=== PATIENT | male | born 1950 | race Caucasian/White ===

== ENCOUNTER 2017-08-01 09:10 | Day surgery (SDC) | payer OTHER ==
[2017-08-01 09:52] LABS: Absolute Monocytes 0.6 K/uL (0.1-1.3); Absolute Neutrophil 5.1 K/uL (1.8-8.0); Basophils % 0.5 % (0-1.3); Eosinophils % 2.2 % (0-4.4); Hematocrit 41.7 % (39.6-49.0); Lymphocytes % 15.1 % (15.3-44.8); MCH 31.4 pg (27.0-35.0); MCV 91.7 fL (80-100); MPV 7.8 fL (7.6-11.3); Monocytes % 8.4 % (3.3-12.3); RBC Red Blood Cell Count 4.55 M/uL (4.33-5.43)
[2017-08-01 09:54] LABS: Urine Appearance CLEAR; Urine Bilirubin NEGATIVE (NEG); Urine Blood NEGATIVE (NEG); Urine Color YELLOW; Urine Glucose NEGATIVE (NEG); Urine Protein NEGATIVE (NEG); Urine Specific Gravity <=1.005 (1.005-1.030); Urine Urobilinogen 0.2 mg/dL (0.2-1.0); Urine pH 7.5 (5.0-7.0)
[2017-08-01] MEDS ORDERED: GENTAMICIN 80 MG/100 ML BAG 80 MG/100 ML BAG IV ONE (09:54)
[2017-08-01] MEDS ORDERED: Ringers Lactate 1,000 ML IV ONE (09:54)
[2017-08-01 10:03] LABS: Urine Microscopic Reflex NO UMIC
--- NOTE | 2017-08-01 10:05 | RAD REPORT ---
EXAM DESCRIPTION: RAD - Chest Pa And Lat (2 Views) - 08/01/2017 9:42 am CLINICAL HISTORY: Preop chest COMPARISON: None. TECHNIQUE: PA and lateral views of the chest were obtained. FINDINGS: The lungs are clear of a focal infiltrate, mass or failure finding. Interstitial markings are mildly prominent believed to be baseline fibrosis. There is mild apical thickening on the right a nd probable pleural scarring at the base on the right. Trachea is midline. Heart size is normal and central vasculature is within normal limits. No pleural effusion or pneumothorax seen. No acute reji ny finding noted. No aortic abnormality. IMPRESSION: Chronic interstitial lung disease in both lung nickerson. Right base and right apex pleural scarring. No acute chest finding.
[2017-08-01 10:06] LABS: BUN Blood Urea Nitrogen 10 mg/dL (6-20); Bicarbonate 30 mEq/L (21-31); Glomerular Filtration Rate > 90 mL/min (=/>90); Glucose Level 109 mg/dL (65-120); Potassium 3.8 mEq/L (3.6-5.0); Sodium Level 141 mEq/L (135-145)
[2017-08-01] MEDS ORDERED: ONDANSETRON 4 MG/2 ML VIAL ONE (11:35)
[2017-08-01] MEDS ORDERED: FENTANYL CITR 100 MCG/2 ML ONE (11:35)
[2017-08-01] MEDS ORDERED: LIDOCAINE 2% MPF 5 ML VIAL ONE (11:35)
[2017-08-01] MEDS ORDERED: PROPOFOL 200 MG/20 ML VIAL IV ONE (11:35)
[2017-08-01] MEDS ORDERED: MIDAZOLAM HCL 2 MG/2 ML INJ ONE (11:35)
[2017-08-01 13:39] VITALS: BP 150/80; TEMP 98.2; O2SAT 96
--- NOTE | 2017-08-01 14:05 | EKG ---
Test Date: 2017-08-01 Test Time: 09:21:51 Social Security Assessor: YARIEL MEASUREMENT RESULTS: Intervals: Rate: 78 WI: 182 QRSD: 98 QT: 368 QTc: 419 [place]: P: 71 WI: 182 QRS: 42 T: 74 INTERPRETIVE STATEMENTS: Normal sinus rhythm Possible Left atrial enlargement Borderline ECG Compared to ECG 08/09/2000 10:45:00 Atrial fibrillation no longer present T-wave abnormality no longer present Possible ischemia no longer present Electronically Signed On 08-01-17 14:03:50 CDT by Pritesh Bauman
== END 2017-08-01 12:45 | disposition home or self-care (01) ==
LOC: OR 09:10
PROVIDERS: ATTEND Urology
DX: N20.2 Calculus of kidney with calculus of ureter (principal); F17.220 Nicotine dependence, chewing tobacco, uncomplicated; Z80.0 Family history of malignant neoplasm of digestive organs; Z82.49 Family history of ischemic heart disease and other diseases of the circulatory system
CPT/HCPCS: 36415; 50590; 71046; 80048; 81003; 84153; 85025; 85730; 86850; 86900; 86901; 87086; 93005; J1580; J2250; J2405; J3010; 87088

== ENCOUNTER 2017-08-15 08:47 | Day surgery (SDC) | payer OTHER ==
[2017-08-09 15:18] LABS: Urine Appearance CLOUDY; Urine Bilirubin NEGATIVE (NEG); Urine Blood NEGATIVE (NEG); Urine Color DK YELLOW; Urine Glucose NEGATIVE (NEG); Urine Protein TRACE (NEG); Urine Specific Gravity 1.025 (1.005-1.030); Urine Urobilinogen 0.2 mg/dL (0.2-1.0); Urine pH 5.5 (5.0-7.0)
[2017-08-09 15:19] LABS: Urine Microscopic Reflex ORDER UMIC
[2017-08-09 15:21] LABS: Absolute Lymphocytes (CBC) 1.1 K/uL (0.7-4.9); Absolute Monocytes 0.6 K/uL (0.1-1.3); Absolute Neutrophil 5.2 K/uL (1.8-8.0); Basophils % 0.7 % (0-1.3); Eosinophils % 2.5 % (0-4.4); Hematocrit 43.4 % (39.6-49.0); Lymphocytes % 15.2 % (15.3-44.8); MCH 30.9 pg (27.0-35.0); MCV 91.4 fL (80-100); MPV 7.8 fL (7.6-11.3); Monocytes % 8.9 % (3.3-12.3); RBC Red Blood Cell Count 4.75 M/uL (4.33-5.43)
[2017-08-09 15:26] LABS: Protime INR 1.05
[2017-08-09 15:33] LABS: BUN Blood Urea Nitrogen 15 mg/dL (6-20); Bicarbonate 29 mEq/L (21-31); Glomerular Filtration Rate > 90 mL/min (=/>90); Glucose Level 158 mg/dL (65-120); Potassium 3.9 mEq/L (3.6-5.0); Sodium Level 139 mEq/L (135-145)
[2017-08-09 15:39] LABS: Urine Bacteria <20 /HPF (NONE SEEN); Urine Culture Reflex Order NOT NEEDED; Urine Mucus 1+ /HPF (NONE SEEN); Urine RBC <5 /HPF (NONE SEEN)
[2017-08-09 15:48] LABS: Phosphorus 2.7 mg/dL (2.5-4.3); Uric Acid 5.2 mg/dL (4.8-8.7)
[2017-08-15] MEDS ORDERED: GENTAMICIN 80 MG/100 ML BAG 80 MG/100 ML BAG IV ONE (09:34)
[2017-08-15] MEDS ORDERED: Ringers Lactate 1,000 ML IV ONE (09:34)
[2017-08-15] MEDS ORDERED: LIDOCAINE 1% MPF 5 ML VIAL ONE (10:05)
[2017-08-15] MEDS ORDERED: MIDAZOLAM HCL 2 MG/2 ML INJ ONE (10:05)
[2017-08-15] MEDS ORDERED: FENTANYL CITR 100 MCG/2 ML ONE (10:05)
[2017-08-15] MEDS ORDERED: PROPOFOL 200 MG/20 ML VIAL IV ONE (10:05)
--- NOTE | 2017-08-15 11:03 | RAD REPORT ---
EXAM DESCRIPTION: RAD - Abdomen 1 View (KUB) - 08/15/2017 9:19 am CLINICAL HISTORY: Abdomen pain. ICD N 20.0 FINDINGS: The bowel gas pattern is unremarkable. A 5 millimeter calculus within the mid left ureter is without significant change in position from the August 07 x-ray
[2017-08-15] MEDS ORDERED: KETOROLAC 30 MG/ML INJ ONE (11:07)
[2017-08-15] MEDS ORDERED: ONDANSETRON 4 MG/2 ML VIAL ONE (11:08)
[2017-08-15 11:15] VITALS: O2SAT 98
[2017-08-15 11:57] VITALS: BP 144/82; TEMP 97.6
== END 2017-08-15 11:48 | disposition home or self-care (01) ==
LOC: OR 08:47
PROVIDERS: ATTEND Urology
DX: N20.2 Calculus of kidney with calculus of ureter (principal); M19.90 Unspecified osteoarthritis, unspecified site; Z87.891 Personal history of nicotine dependence; Z80.0 Family history of malignant neoplasm of digestive organs
CPT/HCPCS: 36415; 50590; 74000; 80048; 84100; 84550; 85025; 85610; 85730; 86850; 86900; 86901; 87086; J1580; J2250; J2405; 74018; 81003; 81015; 87088; J3010

== ENCOUNTER 2018-01-23 08:54 | Emergency (ER) | payer OTHER ==
[2018-01-23] MEDS ORDERED: KETOROLAC 30 MG/ML INJ ONE (09:54)
[2018-01-23] MEDS ORDERED: NA CHLORIDE 0.9% 1,000 ML ONE (09:54)
[2018-01-23] MEDS ORDERED: ONDANSETRON 4 MG/2 ML VIAL ONE (09:54)
--- NOTE | 2018-01-23 10:05 | RAD REPORT ---
EXAM DESCRIPTION: CT - Stone Protocol - 01/23/2018 9:45 am CLINICAL HISTORY: Flank pain. Abd pain;Flank pain COMPARISON: 07/29/2017 TECHNIQUE: Axial images were obtained without oral or IV contrast. Lack of contrast limits solid org an and vascular assessment. The [id number] spans the entirety of the system partially obscuring uppermost abdomen and lung bases. Coronal reformatted images were obtained and reviewed. All CT scans are performed using dose optimization technique as appropriate and may include automated exposure control or mA/KV adjustment according to patient size. FINDINGS: The lower lung nickerson are clear. Imaged portions of the liver and spleen show no suspicious findings on non-contrast imaging. The panc reas and adrenal glands are normal. No pathologic lymphadenopathy in the abdomen or pelvis. 5 mm stone is present in the distal left ureter (1370 HU) resulting in moderate left hydronephrosis. No bowel obstruction, free air, free fluid or abscess. Normal appendix noted. Age undetermined T9 compression fracture seen. Moderate lumbosacral degenerative changes. IMPRESSION: 5 mm stone (1370 HU) distal left ureter resulting in moderate left hydronephrosis.
--- NOTE | 2018-01-23 10:14 | ER ---
Nurse's Notes [facility] Name: Kervin Mccann Age: 67 yrs Sex: Male : 1950 Arrival Date: 01/23/2018 Time: 08:58 Bed 17 Private MD: Snow James C Diagnosis: Hydronephrosis with renal and ureteral calculous obstruction Presentation: 01/23 09:04 Presenting complaint: Patient states: i think i have a reoccurring kidney stone, it tw2 started with pain in my low abdomen then radiated to my back. Transition of care: patient was not received from another setting of care. Onset of symptoms was January 23, 2018. Risk Assessment: Do you want to hurt yourself or someone else? Patient reports desire/thoughts of hurting themselves or someone else. Provider notified. Initial Sepsis Screen: Does the patient meet any 2 criteria? No. Patient's initial sepsis screen is negative. Does the patient have a suspected source of infection? No. Patient's initial sepsis screen is negative. Care prior to arrival: None. 09:04 Method Of Arrival: Ambulatory tw2 09:04 Acuity: AKHIL 3 tw2 Historical: - Allergies: 09:06 No Known Allergies; tw2 - Home Meds: 09:06 None [Active]; tw2 - PMHx: 09:06 Kidney stones; tw2 - PSHx: 09:06 None; tw2 - Immunization history:: Adult Immunizations. - Social history:: Smoking status: Patient uses tobacco products, chewing tobacco, but quit smoking 18 yrs ago, Patient uses. - Ebola Screening: : Patient denies travel to an Ebola-affected area in the 21 days before illness onset. - Family history:: not pertinent. Screenin:27 Abuse screen: Denies threats or abuse. Denies injuries from another. Nutritional iw screening: No deficits noted. Tuberculosis screening: No symptoms or risk factors identified. Fall Risk IV access (20 points). Assessment: 10:26 General: Appears in no apparent distress. Behavior is calm, cooperative. Pain: iw Complains of pain in left mid back. Neuro: Level of Consciousness is awake, alert, obeys commands, Oriented to person, place, time, situation, Moves all extremities. Full function. GI: Bowel sounds present X 4 quads. Abd is soft X 4 quads. Derm: Skin is intact, is healthy with good turgor. Musculoskeletal: Range of motion: intact in all extremities. 11:11 Reassessment: Patient appears in no apparent distress at this time. Patient and/or iw family updated on plan of care and expected duration. Pain level reassessed. Patient is alert, oriented x 3, equal unlabored respirations, skin warm/dry/pink. Vital Signs: 09:06 BP 172 / 86; Pulse 87; Resp 18; Temp 98.0; Pulse Ox 96% on R/A; Pain 7/10; tw2 10:32 BP 124 / 63; Pulse 71; Resp 18; Pulse Ox 100% ; sv ED Course: 08:58 Patient arrived in ED. mr 08:59 Snow James MD is Private Physician. mr 09:05 Triage completed. tw2 09:08 Rodney Galindo MD is Attending Physician. padma 09:44 CT completed. Patient tolerated procedure well. Patient moved to CT via wheelchair. [email or web address] Patient moved back from CT. 09:45 CT Stone Protocol In Process Unspecified. EDMS 09:47 Yohana Harden RN is Primary Nurse. sv 10:00 Initial lab(s) drawn, by tx, sent to lab. Inserted saline lock: 22 gauge in left sv antecubital area, using aseptic technique. ,using aseptic technique. diffusics Blood collected. 10:00 Arm band placed on. iw 10:00 Patient has correct armband on for positive identification. iw 10:07 Urine collected: clean catch specimen, julee colored. 5 10:08 Urine Microscopic Only Sent. [facility] 10:12 Snow James MD is Referral Physician. padma 10:13 Carlos Butler MD is Referral Physician. padma 11:11 No provider procedures requiring assistance completed. IV discontinued, intact, iw bleeding controlled, No redness/swelling at site. Pressure dressing applied. Administered Medications: 10:02 Drug: NS 0.9% 1000 ml Route: IV; Rate: 1 bolus; Site: left antecubital; sv 11:05 Follow up: IV Status: Completed infusion iw 10:02 Drug: Zofran 4 mg Route: IVP; Site: left antecubital; sv 10:42 Follow up: Response: No adverse reaction sv 10:04 Drug: TORadol 30 mg Route: IVP; Site: left antecubital; sv 10:42 Follow up: Response: No adverse reaction sv 10:25 Drug: Rocephin - (cefTRIAXone) 1 grams Route: IVPB; Infused Over: 30 mins; Site: left iw antecubital; 10:30 Follow up: IV Status: Completed infusion iw 10:25 Drug: Flomax 0.4 mg Route: PO; iw 11:14 Follow up: Response: No adverse reaction; Pain is decreased iw 11:13 Not Given (Patient Refused): Cipro 500 mg PO once iw 11:13 Not Given (Other Intervention Used): NS 0.9% 1000 ml IV at 1 bolus Per protocol; 1000 iw mL bolus Outcome: 10:14 Discharge ordered by . padma 11:11 Discharged to home ambulatory, with family. iw 11:11 Condition: good 11:11 Discharge instructions given to patient, family, Instructed on discharge instructions, follow up and referral plans. medication usage, need to follow up with Dr. Butler, pt states he has an appt tomorrow at 1030 Demonstrated understanding of instructions, follow-up care, medications, Prescriptions given X 4. 11:14 Patient left the ED. iw Signatures: Dispatcher [employer] Yohana Caldwell, RN Rodney Bates MD MD cha Rivera, Maria mr Williams, Irene, RN RN iw Wise, Tara, RN RN Kristyn Lee Monserrat Mcdonald
--- NOTE | 2018-01-23 10:14 | EDPHYS ---
Physician Documentation [facility] Name: Kervin Mccann Age: 67 yrs Sex: Male : 1950 Arrival Date: 01/23/2018 Time: 08:58 Bed 17 Private MD: Snow James C ED Physician Rodney Galindo HPI: 01/23 09:31 This 67 yrs old Male presents to ER via Ambulatory with complaints of padma Possible Kidney Stone. 09:31 The patient presents with abdominal pain in the left lower quadrant. Onset: The padma symptoms/episode began/occurred 3 day(s) ago. The patient complains of pain in the left mid back. The pain radiates to the left low back and left mid back. Onset: The symptoms/episode began/occurred 3 day(s) ago. Modifying factors: The symptoms are alleviated by nothing. the symptoms are aggravated by nothing. The patient presents with pain that is acute. The symptoms are located in the low back, left low back and left mid back. Onset: The symptoms/episode began/occurred 3 day(s) ago. Historical: - Allergies: 09:06 No Known Allergies; tw2 - Home Meds: : None [Active]; tw2 - PMHx: 09:06 Kidney stones; tw2 - PSHx: 09:06 None; tw2 - Immunization history:: Adult Immunizations. - Social history:: Smoking status: Patient uses tobacco products, chewing tobacco, but quit smoking 18 yrs ago, Patient uses. - Ebola Screening: : Patient denies travel to an Ebola-affected area in the 21 days before illness onset. - Family history:: not pertinent. ROS: 09:31 Constitutional: Negative for fever, chills, and weight loss, Eyes: Negative for injury, padma pain, redness, and discharge, ENT: Negative for injury, pain, and discharge, Neck: Negative for injury, pain, and swelling, Cardiovascular: Negative for chest pain, palpitations, and edema, Respiratory: Negative for shortness of breath, cough, wheezing, and pleuritic chest pain, Abdomen/GI: Negative for abdominal pain, nausea, vomiting, diarrhea, and constipation, : Negative for injury, bleeding, discharge, and swelling, MS/Extremity: Negative for injury and deformity, Skin: Negative for injury, rash, and discoloration, Neuro: Negative for headache, weakness, numbness, tingling, and seizure, Psych: Negative for depression, anxiety, suicide ideation, homicidal ideation, and hallucinations, Allergy/Immunology: Negative for hives, rash, and allergies, Endocrine: Negative for neck swelling, polydipsia, polyuria, polyphagia, and marked weight changes. 09:31 Back: Positive for pain at rest, flank pain, on the left. Exam: :31 Constitutional: This is a well developed, well nourished patient who is awake, alert, padma and in no acute distress. Head/Face: Normocephalic, atraumatic. Eyes: Pupils equal round and reactive to light, extra-ocular motions intact. Lids and lashes normal. Conjunctiva and sclera are non-icteric and not injected. Cornea within normal limits. Periorbital areas with no swelling, redness, or edema. ENT: Nares patent. No nasal discharge, no septal abnormalities noted. Tympanic membranes are normal and external auditory canals are clear. Oropharynx with no redness, swelling, or masses, exudates, or evidence of obstruction, uvula midline. Mucous membranes moist. Neck: Trachea midline, no thyromegaly or masses palpated, and no cervical lymphadenopathy. Supple, full range of motion without nuchal rigidity, or vertebral point tenderness. No Meningismus. Chest/axilla: Normal chest wall appearance and motion. Nontender with no deformity. No lesions are appreciated. Cardiovascular: Regular rate and rhythm with a normal S1 and S2. No gallops, murmurs, or rubs. Normal PMI, no JVD. No pulse deficits. Respiratory: Lungs have equal breath sounds bilaterally, clear to auscultation and percussion. No rales, rhonchi or wheezes noted. No increased work of breathing, no retractions or nasal flaring. Abdomen/GI: Soft, non-tender, with normal bowel sounds. No distension or tympany. No guarding or rebound. No evidence of tenderness throughout. Male : Normal genitalia with no discharge or lesions. Skin: Warm, dry with normal turgor. Normal color with no rashes, no lesions, and no evidence of cellulitis. MS/ Extremity: Pulses equal, no cyanosis. Neurovascular intact. Full, normal range of motion. Neuro: Awake and alert, GCS 15, oriented to person, place, time, and situation. Cranial nerves II-XII grossly intact. Motor strength 5/5 in all extremities. Sensory grossly intact. Cerebellar exam normal. Normal gait. Psych: Awake, alert, with orientation to person, place and time. Behavior, mood, and affect are within normal limits. 09:31 Back: pain, that is mild, that is moderate, ROM is painful, normal spinal alignment noted, CVA tenderness, is absent, vertebral tenderness, is not appreciated. Vital Signs: 09:06 BP 172 / 86; Pulse 87; Resp 18; Temp 98.0; Pulse Ox 96% on R/A; Pain 7/10; tw2 10:32 BP 124 / 63; Pulse 71; Resp 18; Pulse Ox 100% ; sv MDM: 09:08 Patient medically screened. [facility] 09:36 Data reviewed: vital signs, nurses notes, lab test result(s), radiologic studies, CT [facility] scan. 01/23 09:31 Order name: Amylase, Serum; Complete Time: 11:00 [facility] 01/23 09:31 Order name: Basic Metabolic Panel; Complete Time: 11:00 [facility] 01/23 09:31 Order name: CBC with Diff; Complete Time: 11:00 [facility] 01/23 09:31 Order name: Creatinine for Radiology; Complete Time: 11:00 [facility] 01/23 09:31 Order name: Hepatic Function; Complete Time: 11:00 [facility] 01/23 09:31 Order name: Lipase; Complete Time: 11:00 [facility] 01/23 09:31 Order name: Urine Microscopic Only; Complete Time: 11:00 [facility] 01/23 09:31 Order name: CT Stone Protocol; Complete Time: 10:11 [facility] 01/23 10:09 Order name: Urine Culture [facility] 01/23 10:09 Order name: Urine Dipstick--Ancillary (enter results); Complete Time: 11:00 01/23 09:31 Order name: IV Saline Lock; Complete Time: 10:08 [facility] 01/23 09:31 Order name: Labs collected and sent; Complete Time: 10: [facility] 01/23 09:31 Order name: Urine Dipstick-Ancillary (obtain specimen); Complete Time: 10:08 [facility] 01/23 11:01 Order name: PO challenge: juice; Complete Time: 11:12 [facility] Administered Medications: 10:02 Drug: NS 0.9% 1000 ml Route: IV; Rate: 1 bolus; Site: left antecubital; sv 11:05 Follow up: IV Status: Completed infusion iw 10:02 Drug: Zofran 4 mg Route: IVP; Site: left antecubital; sv 10:42 Follow up: Response: No adverse reaction sv 10:04 Drug: TORadol 30 mg Route: IVP; Site: left antecubital; sv 10:42 Follow up: Response: No adverse reaction sv 10:25 Drug: Rocephin - (cefTRIAXone) 1 grams Route: IVPB; Infused Over: 30 mins; Site: left iw antecubital; 10:30 Follow up: IV Status: Completed infusion iw 10:25 Drug: Flomax 0.4 mg Route: PO; iw 11:14 Follow up: Response: No adverse reaction; Pain is decreased iw 11:13 Not Given (Patient Refused): Cipro 500 mg PO once iw 11:13 Not Given (Other Intervention Used): NS 0.9% 1000 ml IV at 1 bolus Per protocol; 1000 iw mL bolus Disposition: 01/23/18 10:14 Discharged to Home. Impression: Hydronephrosis with renal and ureteral calculous obstruction. - Condition is Stable. - Discharge Instructions: Kidney Stones, Kidney Stones, [id number], Hydronephrosis. - Prescriptions for Tylenol- Codeine #3 300-30 mg Oral Tablet - take 2 tablet by ORAL route every 6 hours As needed; 30 tablet. Zofran 4 mg Oral Tablet - take 1 tablet by ORAL route every 12 hours As needed; 20 tablet. Flomax 0.4 mg Oral Capsule, Sust. Release 24 hr - take 1 capsule by ORAL route once daily 1/2 hour following the same meal each day; 30 capsule. Cipro 500 mg Oral Tablet - take 1 tablet by ORAL route every 12 hours for 7 days; 14 tablet. - Medication Reconciliation Form, Thank You Letter, Antibiotic Education, Prescription Opioid Use form. - Follow up: Snow James MD; When: 2 - 3 days; Reason: Recheck today's complaints, Continuance of care, Re-evaluation by your physician. Follow up: Carlos Butler MD; When: 2 - 3 days; Reason: Recheck today's complaints, Continuance of care, Re-evaluation by your physician. - Problem is new. - Symptoms have improved. Signatures: Dispatcher [employer] Yohana Caldwell, RN RN Rodney Hawkins MD MD cha Williams, Irene, RN ALEXA iw Daniella Lam RN RN tw2 Corrections: (The following items were deleted from the chart) 11:14 10:14 01/23/2018 10:14 Discharged to Home. Impression: Hydronephrosis with renal and iw ureteral calculous obstruction. Condition is Stable. Forms are Medication Reconciliation Form, Thank You Letter, Antibiotic Education, Prescription Opioid Use. Follow up: Snow James; When: 2 - 3 days; Reason: Recheck today's complaints, Continuance of care, Re-evaluation by your physician. Follow up: Carlos Butler; When: 2 - 3 days; Reason: Recheck today's complaints, Continuance of care, Re-evaluation by your physician. Problem is new. Symptoms have improved. padma
[2018-01-23 10:22] LABS: Urine Bacteria <20 /HPF (NONE SEEN); Urine Culture Reflex Order REFLEXED; Urine Mucus 2+ /HPF (NONE SEEN); Urine RBC 20-50 /HPF (NONE SEEN)
[2018-01-23] MEDS ORDERED: TAMSULOSIN 0.4 MG SR CAP ONE (10:23)
[2018-01-23] MEDS ORDERED: CEFTRIAXONE/SWI 1gm 1 GM/10 ML SYR ONE (10:23)
[2018-01-23 10:29] LABS: Absolute Lymphocytes (CBC) 0.8 K/uL (0.7-4.9); Absolute Monocytes 0.8 K/uL (0.1-1.3); Absolute Neutrophil 7.3 K/uL (1.8-8.0); Basophils % 0.4 % (0-1.3); Eosinophils % 0.6 % (0-4.4); Hematocrit 45.5 % (39.6-49.0); Lymphocytes % 9.1 % (15.3-44.8); MCV 92.9 fL (80-100); MPV 8.2 fL (7.6-11.3); Monocytes % 8.7 % (3.3-12.3)
[2018-01-23 10:34] LABS: ALT/SGPT 42 U/L (12-78); AST/SGOT 22 U/L (15-37); Albumin 4.1 g/dL (3.4-5.0); Alkaline Phosphatase 66 U/L (45-117); Amylase Level 55 U/L (25-115); BUN Blood Urea Nitrogen 10 mg/dL (7-18); Bicarbonate 32 mmol/L (21-32); Bilirubin Direct 0.4 mg/dL (0-0.2); Bilirubin Total 1.1 mg/dL (0.2-1.0); Glucose Level 91 mg/dL (74-106); Lipase 496 U/L (73-393); Potassium 3.4 mmol/L (3.5-5.1); Protein, Total 9.2 g/dL (6.4-8.2); Sodium Level 136 mmol/L (136-145)
[2018-01-23 10:39] LABS: Urine Blood 2+ (NEG); Urine Glucose NEGATIVE (NEG); Urine Protein 2+ (NEG); Urine Specific Gravity >1.030 (1.005-1.030); Urine pH 5.5 (5.0-7.0)
[2018-01-23 11:22] VITALS: TEMP 98
[2018-01-23 11:27] VITALS: BP 124/63; O2SAT 100
== END 2018-01-23 11:14 | disposition home or self-care (01) ==
LOC: ER 08:54
DX: N13.2 Hydronephrosis with renal and ureteral calculous obstruction (principal); Z72.0 Tobacco use
CPT/HCPCS: 36415; 74176; 76377; 80048; 80076; 82150; 83690; 85025; 87086; 87088; J0696; J2405; J7030; 81003; 81015; 96361; 96374; 96375; 99284